=== PATIENT | female | born 1995 | race Caucasian/White ===

== ENCOUNTER 2017-03-03 22:36 | Emergency (ER) | payer BC, OTHER ==
[~2017-03-03] VITALS: Ht 157.5 cm; Wt 62.7 kg
[~2017-03-03 22:36] MED LIST: Z.0.NO CURRENT MEDS
[2017-03-03 23:23] VITALS: BP 114/57; PULSE 70; RESP 18; TEMP 98.6; O2SAT 100
[2017-03-04] MEDS ORDERED: PROP20TA3 PO (00:20)
[2017-03-04] MEDS ORDERED: NORG1TAB3 PO (00:20)
[2017-03-04 00:21] VITALS: BP 113/57; PULSE 70; RESP 18; TEMP 98.6; O2SAT 100
[2017-03-04 00:25] VITALS: BP 113/57; PULSE 70; RESP 18; O2SAT 100
[2017-03-04] MEDS ORDERED: HYDR-3533 PO (01:12)
[2017-03-04] MEDS ORDERED: AUGM875T3 PO (01:12)
--- NOTE | 2017-03-04 01:16 | PD ---
HPI Chief Complaint: ENT Complaint Time Seen by Provider: 01:10 Travel History International Travel<30 days: No Contact w/Intl Traveler<30days: No Traveled to known affect area: No History of Present Illness HPI 21 year-old female with bilateral ear pain and sinus pressure after scuba diving 2 days ago with ongoing symptoms not resolving with [id number] medications. No fever or chills. Patient with chronic history of sinus/ear issues and has had myringotomy and tympanic membrane perforation in the past. Patient reportedly cleared by ENT prior to scuba diving. Ear pain and pressure is rated as 8/10 intensity. PFSH Past Medical History Narrative Medical Arthritis asthma migraine; myringotomy tonsillectomy; no tobacco use: Nursing notes reviewed Arthritis: Yes Asthma: Yes (SPORT-INDUCED) GERD: Yes Headaches: Yes Migraines: Yes Tetanus Vaccination: > 5 Years Influenza Vaccination: No ?: Unknown Past Surgical History Oral Surgery: Yes (WISDOM TEETH EXTRACTION 2014) Tonsillectomy: Yes (2000) Tympanostomy Tube: Yes (2000) Social History Alcohol Use: No Tobacco Use: No Substance Use: No Allergies-Medications (Allergen,Severity, Reaction): Coded Allergies: Codeine (Verified Allergy, Severe, Anaphylaxis, 03/04/17) Chocolate (Verified Allergy, Intermediate, Nausea/Vomiting, 03/04/17) Milk (Verified Allergy, Intermediate, Nausea/Vomiting, 03/04/17) Reported Meds & Prescriptions Reported Meds & Active Scripts Active Lortab (Hydrocodone-Acetaminophen) 5-325 Mg Tab 1 Tab PO Q6H PRN Augmentin (Amoxicillin-Clavulanate) 875-125 Mg Tab 1 Tab PO BID 10 Days Reported Norgestimate-Ethinyl Estradiol 0.18/0.215/0.25 Mg-25 Mcg Tab 1 Tab PO DAILY Propranolol (Propranolol HCl) 20 Mg Tab 20 Mg PO Q12HR Review of Systems Except as stated in HPI: all other systems reviewed are Neg Physical Exam Narrative GENERAL: Well-developed well-nourished female in no acute distress no respiratory distress SKIN: Warm and dry. HEAD: Normocephalic. EYES: No scleral icterus. No injection or drainage. ENT: Mucous membranes moist airway is patent; bilateral tympanic membranes without perforation fluid is noted behind the right tympanic membrane with mild erythema NECK: Supple, trachea midline. No JVD or lymphadenopathy. CARDIOVASCULAR: Regular rate and rhythm without murmurs, gallops, or rubs. RESPIRATORY: Breath sounds equal bilaterally. No accessory muscle use. GASTROINTESTINAL: Abdomen soft, non-tender, nondistended. MUSCULOSKELETAL: No cyanosis, or edema. BACK: Nontender without obvious deformity. No CVA tenderness. Data Data Last Documented VS Vital Signs Date Time Temp Pulse Resp B/P Pulse Ox O2 Delivery O2 Flow Rate FiO2 03/04/17 00:25 70 18 113/57 100 Room Air 03/04/17 00:21 98.6 [facility] Medical Decision Making Medical Screen Exam Complete: Yes Emergency Medical Condition: Yes Medical Record Reviewed: Yes Differential Diagnosis Otitis media otitis externa tympanic membrane perforation sinusitis Narrative Course Patient stable for outpatient management. Provided prescription for Ultram for pain and antibiotic Augmentin and given first dose in the ED Diagnosis Primary Impression: Sinusitis Qualified Code: J32.4 - Pansinusitis, unspecified chronicity Referrals: Ear / Nose / Throat Specialist as needed mononitrotoluene operator: Dr Lima Primary Care Physician call for appointment Patient Instructions: General Instructions Additional Instructions: Increase fluid hydration Follow-up with primary care provider/ENT Use Afrin nasal decongestant spray twice daily per package directions as needed for 2-3 days avoid prolonged use to avoid rebound congestion Use Sudafed oral medication decongestant per package directions Use ibuprofen/Advil/Motrin 600 mg as often as every 6 hours as needed for pain associated with inflammation or may take for fever 100.4F or greater Use [id number] Flonase per package directions for sinus congestion/ rhinosinusitis Complete course of antibiotic as prescribed Monitor temperature every 4 hours with thermometer take as needed acetaminophen/ Tylenol for fever 100.4F or greater Return to the emergency department for any concerns or change in condition Med/Other Pt SpecificInfo: Prescription(s) given Scripts Tramadol 50 Mg Tab50 Mg PO Q6H PRN (PAIN) #7 TAB Ref 0 Prov:Radha Ralph MD 03/04/17 Amoxicillin-Clavulanate (Augmentin)875-125 Mg Tab1 Tab PO BID 10 Days Ref 0 Prov:Radha Ralph MD 03/04/17 Disposition: 01 DISCHARGE HOME Condition: Stable Radha Ralph MD Mar 04, 2017 01:16
[2017-03-04] MEDS ORDERED: TRAM50TA PO (01:20)
[2017-03-04] MEDS ORDERED: traMADol HCL 50 MG TAB PO ONE (01:30)
[2017-03-04] MEDS ORDERED: AMOXICILLIN/CLAVULANATE K 875 MG TAB PO ONE (01:30)
[2017-03-04 01:51] VITALS: BP 116/62; PULSE 72; RESP 18; O2SAT 100
== END 2017-03-04 01:55 | disposition home or self-care (01) ==
LOC: PHED 22:36
DX: J32.4 Chronic pansinusitis (principal)
CPT/HCPCS: 99284